=== PATIENT | female | born 1980 | race African-American/Black ===

== ENCOUNTER 2021-04-06 13:49 | Emergency (ER) | payer MEDICAID ==
[~2021-04-06] VITALS: Ht 160 cm; Wt 59.0 kg
[2021-04-06 14:01] VITALS: BP 102/48
[2021-04-06] MEDS ORDERED: TETANUS, DIPHTHERIA, PERTUSSIS VAC/PF 0.5ML (>10YR OLD) IM ONE (15:00)
== END 2021-04-06 16:12 | disposition home or self-care (01) ==
LOC: ER 13:49
DX: S90.512A Abrasion, left ankle, initial encounter (principal); W53.01XA Bitten by mouse, initial encounter; Y93.9 Activity, unspecified; Y92.9 Unspecified place or not applicable; F41.9 Anxiety disorder, unspecified; F32.9 Major depressive disorder, single episode, unspecified; Z88.0 Allergy status to penicillin; Z88.2 Allergy status to sulfonamides; Z98.890 Other specified postprocedural states
CPT/HCPCS: 90471; 90715; 99283

== ENCOUNTER 2021-06-28 09:34 | Emergency (ER) | payer MEDICAID ==
[~2021-06-28] VITALS: Ht 160 cm; Wt 63.0 kg
[2021-06-28] MEDS ORDERED: IBUPROFEN 400MG TABLET PO ONE (10:15)
[2021-06-28 10:24] VITALS: BP 108/38
[2021-06-28] MEDS ORDERED: IBUP-2028 MT (10:56)
== END 2021-06-28 11:22 | disposition home or self-care (01) ==
LOC: ER 09:34
DX: S66.911A Strain of unspecified muscle, fascia and tendon at wrist and hand level, right hand, initial encounter (principal); X50.3XXA Overexertion from repetitive movements, initial encounter; X50.1XXA Overexertion from prolonged static or awkward postures, initial encounter; F41.9 Anxiety disorder, unspecified; F32.9 Major depressive disorder, single episode, unspecified; Y93.89 Activity, other specified; Y92.9 Unspecified place or not applicable; Z88.0 Allergy status to penicillin; Z88.2 Allergy status to sulfonamides
CPT/HCPCS: 29125; 73110; 99283

== ENCOUNTER 2021-11-14 09:43 | Emergency (ER) | payer MEDICAID, OTHER ==
[~2021-11-14] VITALS: Ht 162.6 cm; Wt 62.0 kg
[~2021-11-14 09:43] MED LIST: IBUP-2028 MT
[2021-11-14 10:45] VITALS: BP 104/43
[2021-11-14 12:43] LABS: CLARITY URINE CLEAR (CLEAR); COLOR URINE YELLOW (YELLOW); KETONES URINE NEGATIVE (NEGATIVE); LEUKOCYTE ESTERASE URINE NEGATIVE (NEGATIVE); NITRITE URINE NEGATIVE (NEGATIVE); OCCULT BLOOD URINE NEGATIVE (NEGATIVE); PROTEIN URINE NEGATIVE (NEGATIVE); SPECIFIC GRAVITY URINE 1.014 (1.005-1.030); UROBILINOGEN URINE 0.2 E.U./dL (0.2-1.0)
[2021-11-14 12:58] LABS: CHLORIDE 104 mEq/L (98-107)
[2021-11-14 13:00] LABS: BASOPHILS % 0.2 % (0.0-2.0); EOSINOPHILS % 0.2 % (0.0-5.0); HEMATOCRIT. 35.3 % (36.0-48.0); HEMOGLOBIN. 11.9 g/dL (12.0-16.0); LYMPHOCYTES % 26.1 % (20.0-50.0); MEAN CORPUSCULAR VOLUME 77.1 fL (81.0-99.0); MONOCYTES % 6.1 % (2.0-8.0); NEUTROPHILS % 67.4 % (40.0-76.0); PLATELET 272 x1000/uL (130-400); RED BLOOD CELL COUNT 4.58 mill/uL (4.2-5.4); RED CELL DISTRIBUTION WIDTH 13.6 % (11.6-14.6)
[2021-11-14 13:35] LABS: HCG SCREEN POSITIVE
== END 2021-11-14 16:00 | disposition home or self-care (01) ==
LOC: ER 09:43
DX: O26.891 Other specified pregnancy related conditions, first trimester (principal); V43.52XA Car driver injured in collision with other type car in traffic accident, initial encounter; Y93.89 Activity, other specified; Y92.89 Other specified places as the place of occurrence of the external cause; Y99.8 Other external cause status; Z3A.11 11 weeks gestation of pregnancy
CPT/HCPCS: 36415; 76705; 76815; 80053; 81003; 81025; 84703; 85025; 86850; 86900; 99284

== ENCOUNTER 2021-12-24 01:28 | Emergency (ER) | payer MEDICAID, OTHER ==
[~2021-12-24] VITALS: Ht 165.1 cm; Wt 63.5 kg
[2021-12-24 01:41] VITALS: BP 122/81
== END 2021-12-24 05:08 | disposition home or self-care (01) ==
LOC: ER 01:28
DX: T16.1XXA Foreign body in right ear, initial encounter (principal); X58.XXXA Exposure to other specified factors, initial encounter; Y93.89 Activity, other specified; Y92.89 Other specified places as the place of occurrence of the external cause; Y99.8 Other external cause status; Z88.0 Allergy status to penicillin
CPT/HCPCS: 99281

== ENCOUNTER 2022-05-27 09:13 | Inpatient (IN) | payer OTHER ==
[~2022-05-27] VITALS: Ht 160 cm; Wt 68.0 kg
[2022-05-27] MEDS ORDERED: CARBOPROST TROMETHAMINE 250 MCG/ML AMPUL IM PRN (11:00)
[2022-05-27] MEDS ORDERED: BUTORPHANOL TARTRATE 2 MG/ML VIAL IV PRN (11:00)
[2022-05-27] MEDS ORDERED: MISOPROSTOL 100MCG TABLET RC SCH (11:00)
[2022-05-27] MEDS ORDERED: LIDOCAINE HCL 1% 20ML VIAL (Pyxis) INJ INFIL SCH (11:00)
[2022-05-27] MEDS ORDERED: OXYTOCIN 30 UNITS/500ML NS PMX 500 ML IV SCH (11:00)
[2022-05-27] MEDS ORDERED: METHYLERGONOVINE MALEATE 0.2 MG/ML IM PRN (11:00)
[2022-05-27] MEDS ORDERED: NALOXONE HCL 0.4 MG/ML 1ML VIAL IM PRN (11:00)
[2022-05-27 12:27] LABS: BASOPHILS % 0.4 % (0.0-2.0); EOSINOPHILS % 0.2 % (0.0-5.0); HEMATOCRIT. 28.1 % (36.0-48.0); HEMOGLOBIN. 9.5 g/dL (12.0-16.0); MEAN CORPUSCULAR HEMOGLOBIN 24.7 pg (28.0-32.0); MEAN CORPUSCULAR VOLUME 73.3 fL (81.0-99.0); MEAN PLATELET VOLUME 8.4 fl (7.4-10.4); MONOCYTES % 9.6 % (2.0-8.0); NEUTROPHILS % 48.8 % (40.0-76.0); PLATELET 245 x1000/uL (130-400); RED BLOOD CELL COUNT 3.83 mill/uL (4.2-5.4); RED CELL DISTRIBUTION WIDTH 14.2 % (11.6-14.6)
[2022-05-27 12:43] LABS: INR 0.9; PROTHROMBIN TIME 9.8 sec (9.6-11.0)
[2022-05-27 13:21] LABS: HEPATITIS B SURFACE ANTIGEN NEGATIVE
[2022-05-27] MEDS: LACTATED RINGERS 1,000 ML IV SCH ×2 (13:52→18:11)
[2022-05-27 21:47] LABS: CLARITY URINE CLEAR (CLEAR); COLOR URINE YELLOW (YELLOW); KETONES URINE 3+ (NEGATIVE); LEUKOCYTE ESTERASE URINE NEGATIVE (NEGATIVE); NITRITE URINE NEGATIVE (NEGATIVE); OCCULT BLOOD URINE NEGATIVE (NEGATIVE); PROTEIN URINE NEGATIVE (NEGATIVE); SPECIFIC GRAVITY URINE 1.014 (1.005-1.030)
[2022-05-27 21:59] LABS: *AMPHETAMINES SCREEN URINE NEGATIVE (NEGATIVE); *BARBITURATES SCREEN URINE NEGATIVE (NEGATIVE); *BENZODIAZEPINES SCREEN URINE NEGATIVE (NEGATIVE); *COCAINE SCREEN URINE NEGATIVE (NEGATIVE); CANNABINOID URINE SCREEN NEGATIVE (NEGATIVE); METHADONE URINE SCREEN NEGATIVE (NEGATIVE); OPIATES URINE SCREEN NEGATIVE (NEGATIVE); PHENCYCLIDINE URINE SCREEN NEGATIVE (NEGATIVE)
[2022-05-28 01:50] VITALS: BP 108/59
[2022-05-28] MEDS ORDERED: IBUPROFEN 400MG TABLET PO PRN (02:15)
[2022-05-28] MEDS ORDERED: BENZOCAINE/LANOLIN/ALOE VERA SPRAY TOP PRN (02:15)
[2022-05-28] MEDS ORDERED: DIPHENHYDRAMINE 25MG CAPSULE PO PRN (02:15)
[2022-05-28] MEDS ORDERED: RHO(D) IMMUNE GLOBULIN 300 MCG/SYR IM PRN (02:15)
[2022-05-28] MEDS ORDERED: HEMORRHOIDAL SUPP PR PRN (02:15)
[2022-05-28] MEDS ORDERED: METHYLERGONOVINE MALEATE 0.2 MG/ML IM PRN ×2 (02:15)
[2022-05-28] MEDS ORDERED: OXYTOCIN 30 UNITS/500ML NS PMX 500 ML IV SCH (02:15)
[2022-05-28] MEDS ORDERED: GLYCERIN/WITCH HAZEL LEAF MEDICATED PAD TOP PRN (02:15)
[2022-05-28] MEDS ORDERED: LANOLIN OINT 7GM TUBE TOP PRN (02:15)
[2022-05-28] MEDS ORDERED: BISACODYL 10MG SUPP PR PRN (02:15)
[2022-05-28 04:00] VITALS: BP 106/60
[2022-05-28] MEDS: MAGNESIUM/ALUMINUM HYDROXIDE/SIMETHICONE 30ML UDC PO SCH ×4 (07:30→17:58)
[2022-05-28 08:00] VITALS: BP 98/43
[2022-05-28] MEDS: PRENATAL VIT/FE FUMARATE/FA TABLET PO SCH (08:46)
[2022-05-28] MEDS: SIMETHICONE 80MG TABLET CHEW PO SCH ×4 (08:46→22:40)
[2022-05-28] MEDS: IBUPROFEN 800MG TABLET PO PRN ×2 (08:47→20:07)
[2022-05-28] MEDS ORDERED: METHYLERGONOVINE MALEATE 0.2MG TABLET PO SCH (09:00)
[2022-05-28] MEDS: FERROUS SULFATE 325MG TABLET PO SCH ×3 (09:00→17:58)
[2022-05-28 11:54] LABS: BASOPHILS % 0.2 % (0.0-2.0); EOSINOPHILS % 0.3 % (0.0-5.0); HEMATOCRIT. 26.9 % (36.0-48.0); HEMOGLOBIN. 8.9 g/dL (12.0-16.0); LYMPHOCYTES % 28.3 % (20.0-50.0); MEAN CORPUSCULAR HEMOGLOBIN 24.5 pg (28.0-32.0); MEAN CORPUSCULAR VOLUME 74.2 fL (81.0-99.0); MEAN PLATELET VOLUME 8.5 fl (7.4-10.4); MONOCYTES % 12.2 % (2.0-8.0); PLATELET 222 x1000/uL (130-400); RED BLOOD CELL COUNT 3.62 mill/uL (4.2-5.4); RED CELL DISTRIBUTION WIDTH 14.7 % (11.6-14.6)
[2022-05-28 15:39] VITALS: BP 103/58
[2022-05-28] MEDS: DOCUSATE SODIUM 100MG CAPSULE PO SCH (20:07)
[2022-05-28 20:24] VITALS: BP 101/51
[2022-05-29 02:53] VITALS: BP 105/55
[2022-05-29] MEDS: IBUPROFEN 800MG TABLET PO PRN ×3 (02:57→21:47)
[2022-05-29] MEDS: FERROUS SULFATE 325MG TABLET PO SCH ×2 (07:30→12:30)
[2022-05-29 08:00] VITALS: BP 120/66
[2022-05-29] MEDS: LACTATED RINGERS 1,000 ML IV SCH (13:07)
[2022-05-29] MEDS ORDERED: CLINDAMYCIN 600 MG in DEXTROSE 5% WATER 50 ML IV ONE (15:45)
[2022-05-29 16:00] VITALS: BP 100/57
[2022-05-29] MEDS ORDERED: CLINDAMYCIN 600MG PREMIX 50 ML IV NR (16:00)
[2022-05-29] MEDS ORDERED: NALOXONE HCL 0.4MG/ML VIAL IV PRN (16:00)
[2022-05-29 20:00] VITALS: BP 133/69
[2022-05-29] MEDS ORDERED: MIDAZOLAM HCL 2 MG/2 ML VIAL ONE (20:24)
[2022-05-29] MEDS ORDERED: ONDANSETRON HCL 4MG/2ML INJ ONE (20:27)
[2022-05-29] MEDS ORDERED: DEXAMETHASONE 4MG/ML 1ML VIAL ONE (20:27)
[2022-05-29] MEDS ORDERED: FENTANYL CITRATE/PF 50MCG/ML 2ML VIAL ONE ×2 (20:28→20:40)
[2022-05-29] MEDS ORDERED: PROPOFOL 200MG/20ML VIAL IV ONE (20:38)
[2022-05-29] MEDS: DOCUSATE SODIUM 100MG CAPSULE PO SCH (23:01)
[2022-05-29] MEDS: MAGNESIUM/ALUMINUM HYDROXIDE/SIMETHICONE 30ML UDC PO SCH (23:01)
[2022-05-29] MEDS: SIMETHICONE 80MG TABLET CHEW PO SCH (23:02)
[2022-05-29] MEDS: ACETAMINOPHEN WITH CODEINE 300/30MG TABLET PO PRN (23:02)
[2022-05-30 04:00] VITALS: BP 115/50
[2022-05-30] MEDS ORDERED: IBUP-2030 PO (06:59)
[2022-05-30] MEDS: ACETAMINOPHEN WITH CODEINE 300/30MG TABLET PO PRN (07:06)
[2022-05-30 08:00] VITALS: BP 99/45
[2022-05-30] MEDS: PRENATAL VIT/FE FUMARATE/FA TABLET PO SCH (09:00)
[2022-05-30] MEDS: SIMETHICONE 80MG TABLET CHEW PO SCH ×2 (09:08→13:00)
[2022-05-30] MEDS: MAGNESIUM/ALUMINUM HYDROXIDE/SIMETHICONE 30ML UDC PO SCH ×2 (09:08→12:30)
[2022-05-30] MEDS: IBUPROFEN 800MG TABLET PO PRN (09:16)
== END 2022-05-30 15:45 | disposition home or self-care (01) | DRG 541 ==
LOC: OBSVTOIN 09:13 → 8 EST LDRP 09:13 → 8EST 05-28 01:38
PROVIDERS: ADMIT Obstetrics & Gynecology; ATTEND Obstetrics & Gynecology
PROC: 10E0XZZ Delivery of Products of Conception, External Approach (ICD-10-PCS; principal; 2022-05-30)
PROC: 0UB70ZZ Excision of Bilateral Fallopian Tubes, Open Approach (ICD-10-PCS; 2022-05-30)
DX: O80 Encounter for full-term uncomplicated delivery (principal); Z37.0 Single live birth; Z20.822 Contact with and (suspected) exposure to COVID-19; Z3A.39 39 weeks gestation of pregnancy; Z30.2 Encounter for sterilization; Z88.0 Allergy status to penicillin; Z88.2 Allergy status to sulfonamides
CPT/HCPCS: 36415; 76805; 76818; 80305; 81003; 85025; 86592; 86703; 86762; 86850; 86900; 87340; 87426; 88302; J0595; J1100; J2250; J2405; J2704; J3010; J3490; J7120; A4315; J2590

== ENCOUNTER 2023-11-09 12:57 | Emergency (ER) | payer MEDICAID, OTHER ==
[~2023-11-09] VITALS: Ht 167.6 cm; Wt 62.0 kg
[~2023-11-09 12:57] MED LIST changes: +IBUP-2030 PO
[2023-11-09 13:17] VITALS: TEMP 98.6; O2SAT 99
[2023-11-09] MEDS: KETOROLAC 30MG/ML VIAL IM ONE (14:42)
[2023-11-09 14:53] VITALS: BP 117/51; PULSE 66; RESP 16; O2SAT 99
== END 2023-11-09 14:54 | disposition home or self-care (01) ==
LOC: ER 12:57
DX: M25.531 Pain in right wrist (principal); Z88.0 Allergy status to penicillin; Z88.2 Allergy status to sulfonamides
CPT/HCPCS: 99283; 73090; 96372; J1885

== ENCOUNTER 2024-10-23 17:36 | Emergency (ER) | payer OTHER ==
[~2024-10-23] VITALS: Ht 160 cm; Wt 68.0 kg
[2024-10-23 17:38] VITALS: O2SAT 98
[2024-10-23 17:53] VITALS: BP 125/74; PULSE 100; RESP 18; TEMP 36.9; O2SAT 99
[2024-10-23] MEDS ORDERED: CLOT15CR27 TP (18:18)
== END 2024-10-23 18:34 | disposition home or self-care (01) ==
LOC: ER 17:41
DX: B35.4 Tinea corporis (principal); Z88.0 Allergy status to penicillin; Z88.2 Allergy status to sulfonamides
CPT/HCPCS: 99282

== ENCOUNTER 2024-11-08 09:38 | Emergency (ER) | payer OTHER ==
[~2024-11-08] VITALS: Ht 162.6 cm; Wt 64.0 kg
[~2024-11-08 09:38] MED LIST changes: +CLOT15CR27 TP
[2024-11-08 09:41] VITALS: O2SAT 100
[2024-11-08 09:42] VITALS: BP 119/51; PULSE 88; RESP 16; TEMP 36.9; O2SAT 99
[2024-11-08] MEDS ORDERED: HYDR99LO MT (10:17)
== END 2024-11-08 10:40 | disposition home or self-care (01) ==
LOC: ER 09:38
DX: B86 Scabies (principal); Z88.2 Allergy status to sulfonamides; Z88.0 Allergy status to penicillin; Z79.899 Other long term (current) drug therapy; Z98.890 Other specified postprocedural states
CPT/HCPCS: 99282